=== PATIENT | male | born 1980 | race African-American/Black ===

== ENCOUNTER 2020-01-15 07:32 | Emergency (ER) | payer OTHER ==
[~2020-01-15] VITALS: Ht 182.9 cm; Wt 127.0 kg
[2020-01-15] MEDS ORDERED: ENALAPRIL 2.5MG/2ML VIAL 2ML IV ONE (09:15)
[2020-01-15 09:28] LABS: BASOPHILS % 0.5 % (0.0-2.0); EOSINOPHILS % 0.9 % (0.0-5.0); HEMATOCRIT. 44.2 % (42.0-52.0); HEMOGLOBIN. 14.6 g/dL (14.0-18.0); LYMPHOCYTES % 15.7 % (20.0-50.0); MEAN CORPUSCULAR HEMOGLOBIN 29.6 pg (28.0-32.0); MEAN CORPUSCULAR VOLUME 89.4 fL (80.0-94.0); MEAN PLATELET VOLUME 8.1 fl (7.4-10.4); MONOCYTES % 4.9 % (2.0-8.0); PLATELET 346 x1000/uL (130-400); RED BLOOD CELL COUNT 4.94 mill/uL (4.7-6.1); RED CELL DISTRIBUTION WIDTH 13.6 % (11.6-14.6)
[2020-01-15 09:31] LABS: CHLORIDE 106 mEq/L (98-107)
[2020-01-15 09:35] LABS: ETHANOL BLOOD < 10 mg/dL
[2020-01-15] MEDS ORDERED: HYDROCHLOROTHIAZIDE 25MG TABLET PO ONE (10:15)
[2020-01-15] MEDS ORDERED: LISINOPRIL 40MG TABLET PO ONE (10:15)
[2020-01-15 12:08] LABS: CLARITY URINE CLEAR (CLEAR); COLOR URINE YELLOW (YELLOW); KETONES URINE NEGATIVE (NEGATIVE); LEUKOCYTE ESTERASE URINE NEGATIVE (NEGATIVE); NITRITE URINE NEGATIVE (NEGATIVE); OCCULT BLOOD URINE TRACE (NEGATIVE); PH URINE 6.5 (4.5-8.0); PROTEIN URINE NEGATIVE (NEGATIVE); SPECIFIC GRAVITY URINE 1.025 (1.005-1.030); UROBILINOGEN URINE 0.2 E.U./dL (0.2-1.0)
[2020-01-15 13:03] LABS: *AMPHETAMINES SCREEN URINE NEGATIVE (NEGATIVE); *BARBITURATES SCREEN URINE NEGATIVE (NEGATIVE); *BENZODIAZEPINES SCREEN URINE NEGATIVE (NEGATIVE); *COCAINE SCREEN URINE PRESUMTIVE POSITIVE (NEGATIVE); METHADONE URINE SCREEN NEGATIVE (NEGATIVE); PHENCYCLIDINE URINE SCREEN NEGATIVE (NEGATIVE)
[2020-01-15 13:04] LABS: CANNABINOID URINE SCREEN NEGATIVE (NEGATIVE)
[2020-01-15 13:44] VITALS: BP 139/84
== END 2020-01-15 13:46 | disposition home or self-care (01) ==
LOC: ER 07:32
DX: I16.0 Hypertensive urgency (principal); R42 Dizziness and giddiness; R06.00 Dyspnea, unspecified; R06.02 Shortness of breath
CPT/HCPCS: 36415; 70450; 71045; 80053; 80305; 80320; 81003; 83690; 83880; 84484; 85025; 93005; 99285; J3490; G0480